=== PATIENT | female | born 1965 | race African-American/Black ===

== ENCOUNTER 2023-08-31 20:06 | Emergency (ER) | payer OTHER, MEDICAID ==
[2023-08-31] MEDS ORDERED: Proparacaine 0.5% Opth 15 ML BOT ONE (20:45)
[2023-08-31] MEDS ORDERED: Erythromycin Base 0.5% Oint 1 GM TUBE ONE (21:20)
== END 2023-08-31 21:25 | disposition home or self-care (01) ==
LOC: CSHERS 20:06
DX: H57.11 Ocular pain, right eye (principal); H10.9 Unspecified conjunctivitis; I10 Essential (primary) hypertension; E78.00 Pure hypercholesterolemia, unspecified; Z79.899 Other long term (current) drug therapy
CPT/HCPCS: 99283

== ENCOUNTER 2023-12-31 10:47 | Outpatient (CLI) | payer OTHER, MEDICAID | END 2023-12-31 10:48 | disposition home or self-care (01) | LOC: CSHRAD 10:47 | PROVIDERS: ATTEND Ophthalmology Uveitis and Ocular Inflammatory Disease | DX: H30.21 Posterior cyclitis, right eye (principal); H30.22 Posterior cyclitis, left eye; R91.1 Solitary pulmonary nodule | CPT/HCPCS: 71046 ==